=== PATIENT | male | born 1995 | race Caucasian/White ===

== ENCOUNTER 2017-10-20 05:08 | Emergency (ER) | payer OTHER ==
[~2017-10-20] VITALS: Ht 188 cm; Wt 90.7 kg
[2017-10-20] MEDS ORDERED: Augmentin 875-1 EACH PO (06:08)
[2017-10-20] MEDS ORDERED: Norco 5-325 Ta1 EACH PO (06:24)
== END 2017-10-20 06:38 | disposition home or self-care (01) ==
LOC: ER 05:08
DX: L03.011 Cellulitis of right finger (principal); F17.200 Nicotine dependence, unspecified, uncomplicated
CPT/HCPCS: 10060; 99283

== ENCOUNTER 2018-02-26 02:05 | Emergency (ER) | payer OTHER ==
[~2018-02-26] VITALS: Ht 188 cm; Wt 97.5 kg
[~2018-02-26 02:05] MED LIST: Augmentin 875-1 EACH PO; Norco 5-325 Ta1 EACH PO
[2018-02-26] MEDS ORDERED: Zofran Odt4 MG SL (02:42)
[2018-02-26] MEDS ORDERED: Norco 10-325 T1 EACH PO (02:42)
== END 2018-02-26 02:52 | disposition home or self-care (01) ==
LOC: ER 02:05
DX: S89.92XA Unspecified injury of left lower leg, initial encounter (principal); F17.200 Nicotine dependence, unspecified, uncomplicated; Z91.013 Allergy to seafood; X58.XXXA Exposure to other specified factors, initial encounter; Y92.89 Other specified places as the place of occurrence of the external cause; Y99.0 Civilian activity done for income or pay
CPT/HCPCS: 29505; 73562-LT; 99283

== ENCOUNTER 2018-06-14 20:19 | Emergency (ER) | payer OTHER ==
[~2018-06-14] VITALS: Ht 188 cm; Wt 101.6 kg
[~2018-06-14 20:19] MED LIST changes: +Norco 10-325 T1 EACH PO; +Zofran Odt4 MG SL
[2018-06-14 20:58] LABS: BASOPHILS ABSOLUTE AUTO 0.05 K/mm3 (0.00-0.23); BASOPHILS PERCENT AUTO 1 % (0-2); EOSINOPHILS ABSOLUTE AUTO 0.19 K/mm3 (0.00-0.68); EOSINOPHILS PERCENT AUTO 2 % (0-6); Hematocrit 46.5 % (37.0-53.0); Hemoglobin 16.1 g/dL (13.5-17.5); IMMATURE GRAN ABSOLUTE AUTO 0.03 K/mm3 (0.00-0.10); IMMATURE GRAN PERCENT AUTO 0 % (0-1); LYMPHOCYTES PERCENT AUTO 38 % (21-46); MONOCYTES ABSOLUTE AUTO 1.25 K/mm3 (0.16-1.47); MONOCYTES PERCENT AUTO 13 % (4-13); Mean Corpuscular HGB 31.5 pg (26.0-34.0); Mean Corpuscular HGB Conc 34.6 g/dL (31.5-36.5); Mean Corpuscular Volume 91 fL (80-100); Mean Platelet Volume 9.8 fL (9.1-12.4); NEUTROPHILS ABSOLUTE AUTO 4.65 K/mm3 (1.96-9.15); NEUTROPHILS PERCENT AUTO 47 % (41-73); Platelet Count 312 K/mm3 (150-400); RDW Coefficient Variation 12.5 % (11.7-14.2); RDW Standard Deviation 41.8 fL (35.1-46.3); Red Blood Cell Count 5.11 M/mm3 (4.30-5.90); White Blood Cell Count 9.87 K/mm3 (4.00-11.30)
[2018-06-14 21:26] LABS: Alanine Aminotransfer (ALT/SGP 67 U/L (12-78); Albumin/Globulin Ratio 1.1 (0.8-1.8); Alk Phos 112 U/L (50-136); Anion Gap 9 mmol/L (6-16); Aspartate Aminotrans (AST/SGOT 33 U/L (12-37); Bilirubin, Total 0.9 mg/dL (0.1-1.0); Blood Urea Nitrogen 12 mg/dL (8-24); CO2, Blood 26 mmol/L (21-32); Calcium, Blood 8.8 mg/dL (8.5-10.1); Chloride, Blood 103 mmol/L (98-108); Creatinine, Blood 0.92 mg/dL (0.60-1.20); Globulin, Blood 3.8 g/dL (2.2-4.0); Glomerular Filtration Rate >60 (60-); Glucose, Blood 91 mg/dL (70-99); Potassium, Blood 3.4 mmol/L (3.5-5.5); Sodium, Blood 138 mmol/L (136-145); Total Protein, Blood 7.8 g/dL (6.4-8.2)
== END 2018-06-14 21:28 | disposition left against medical advice (07) ==
LOC: ER 20:19
PROVIDERS: Emergency Medicine
DX: Z53.21 Procedure and treatment not carried out due to patient leaving prior to being seen by health care provider (principal)
CPT/HCPCS: 36415; 80053; 83690; 85025

== ENCOUNTER 2019-09-07 08:34 | Emergency (ER) | payer OTHER ==
[~2019-09-07] VITALS: Ht 188 cm; Wt 99.8 kg
[2019-09-07] MEDS ORDERED: Crutch1 EACH MISC (10:53)
[2019-09-07] MEDS ORDERED: Roxicodone5 MG PO (10:54)
== END 2019-09-07 11:33 | disposition home or self-care (01) ==
LOC: ER 08:34
DX: S89.91XA Unspecified injury of right lower leg, initial encounter (principal); F17.200 Nicotine dependence, unspecified, uncomplicated; Z88.0 Allergy status to penicillin; Z91.013 Allergy to seafood; X50.1XXA Overexertion from prolonged static or awkward postures, initial encounter
CPT/HCPCS: 29505; 73564; 96372-59; 99283-25; J1170; J1885

== ENCOUNTER 2019-09-30 19:34 | Emergency (ER) | payer OTHER ==
[~2019-09-30] VITALS: Ht 188 cm; Wt 99.8 kg
[~2019-09-30 19:34] MED LIST changes: +Crutch1 EACH MISC; +Roxicodone5 MG PO
[2019-09-30 20:19] LABS: Influenza A Negative (NEGATIVE); Influenza B Negative (NEGATIVE)
== END 2019-09-30 21:50 | disposition home or self-care (01) ==
LOC: ER 19:34
PROVIDERS: Physician Assistant
DX: J11.1 Influenza due to unidentified influenza virus with other respiratory manifestations (principal); F17.210 Nicotine dependence, cigarettes, uncomplicated; Z88.0 Allergy status to penicillin; Z91.013 Allergy to seafood
CPT/HCPCS: 87081; 87430; 87804; 99283

== ENCOUNTER → 2019-10-02 | Outpatient (CLI) | payer OTHER ==
[2019-10-02 12:55] LABS: BASOPHILS ABSOLUTE AUTO 0.03 K/mm3 (0.00-0.23); BASOPHILS PERCENT AUTO 1 % (0-2); EOSINOPHILS ABSOLUTE AUTO 0.02 K/mm3 (0.00-0.68); EOSINOPHILS PERCENT AUTO 0 % (0-6); Hematocrit 44.5 % (37.0-53.0); Hemoglobin 15.4 g/dL (13.5-17.5); Mean Corpuscular HGB 31.2 pg (26.0-34.0); Mean Corpuscular HGB Conc 34.6 g/dL (31.5-36.5); Mean Corpuscular Volume 90 fL (80-100); Mean Platelet Volume 9.7 fL (9.1-12.4); Platelet Count 257 K/mm3 (150-400); RDW Standard Deviation 39.6 fL (35.1-46.3); Red Blood Cell Count 4.93 M/mm3 (4.30-5.90); White Blood Cell Count 6.43 K/mm3 (4.00-11.30)
[2019-10-02 13:06] LABS: Alanine Aminotransfer (ALT/SGP 24 U/L (12-78); Albumin, Blood 3.6 g/dL (3.4-5.0); Albumin/Globulin Ratio 0.9 (0.8-1.8); Alk Phos 104 U/L (40-126); Anion Gap 12 mmol/L (6-16); Aspartate Aminotrans (AST/SGOT 24 U/L (12-37); Bilirubin, Total 0.5 mg/dL (0.1-1.0); Blood Urea Nitrogen 8 mg/dL (8-24); CO2, Blood 26 mmol/L (21-32); Calcium, Blood 8.3 mg/dL (8.5-10.1); Chloride, Blood 101 mmol/L (98-108); Creatinine, Blood 0.89 mg/dL (0.60-1.20); Glomerular Filtration Rate >60 (60-); Glucose, Blood 93 mg/dL (70-99); Potassium, Blood 3.9 mmol/L (3.5-5.5); Sodium, Blood 139 mmol/L (136-145); Total Protein, Blood 7.6 g/dL (6.4-8.2)
[2019-10-02 13:13] LABS: IMMATURE GRAN ABSOLUTE AUTO 0.02 K/mm3 (0.00-0.10); IMMATURE GRAN PERCENT AUTO 0 % (0-1); LYMPHOCYTES ABSOLUTE AUTO 1.86 K/mm3 (0.84-5.20); LYMPHOCYTES PERCENT AUTO 29 % (21-46); MONOCYTES ABSOLUTE AUTO 0.97 K/mm3 (0.16-1.47); MONOCYTES PERCENT AUTO 15 % (4-13); NEUTROPHILS ABSOLUTE AUTO 3.53 K/mm3 (1.96-9.15); NEUTROPHILS PERCENT AUTO 55 % (41-73)
== END | disposition home or self-care (01) ==
LOC: LAB SHORT 12:51 → LAB EV 12:51
PROVIDERS: General Practice
DX: J02.9 Acute pharyngitis, unspecified (principal)
CPT/HCPCS: 80053; 85025

== ENCOUNTER 2019-10-09 07:38 | Day surgery (SDC) | payer OTHER ==
[~2019-10-09] VITALS: Ht 188 cm; Wt 94.4 kg
--- NOTE | 2019-10-09 08:31 | NUR ---
10/09/19 0831 Nilda Enriquez BLOOD IS DRAWN FOR PRP AND ANTICOAG IS ADDED, DELIVERED TO OR AND SPUN.
--- NOTE | 2019-10-09 10:01 | NUR ---
10/09/19 1001 Aniya Llanes RIGHT FEMORAL NERVE BLOCK COMPLETED IN OR WITHOUT DIFFICULTY. PT TOLERATED PROCEDURE WELL.
== END 2019-10-09 13:43 | disposition home or self-care (01) ==
LOC: ORSCSDS 07:38
PROVIDERS: Orthopaedic Surgery
PROC: 0YQF0ZZ Repair Right Knee Region, Open Approach (ICD-10-PCS; principal; 2019-10-09 09:00)
PROC: 0QSD04Z Reposition Right Patella with Internal Fixation Device, Open Approach (ICD-10-PCS; principal; 2019-10-09 09:00)
PROC: 0SQC4ZZ Repair Right Knee Joint, Percutaneous Endoscopic Approach (ICD-10-PCS; principal; 2019-10-09 09:00)
DX: S83.004A Unspecified dislocation of right patella, initial encounter (principal); M94.261 Chondromalacia, right knee; S82.011A Displaced osteochondral fracture of right patella, initial encounter for closed fracture; F17.210 Nicotine dependence, cigarettes, uncomplicated
CPT/HCPCS: C1713; C1762; C1769; J0171; J0690; J1100; J1885; J2250; J2405; J2704; J2795; J3010; J7120

== ENCOUNTER 2021-11-13 00:03 | Emergency (ER) | payer OTHER ==
[~2021-11-13] VITALS: Ht 188 cm; Wt 99.3 kg
[2021-11-13] MEDS ORDERED: IBUP200 PO (01:14)
[2021-11-13] MEDS ORDERED: AMOX-CLAV 875-1 EAC5 PO (01:14)
== END 2021-11-13 02:11 | disposition home or self-care (01) ==
LOC: ER 00:03
DX: S01.512A Laceration without foreign body of oral cavity, initial encounter (principal); F17.210 Nicotine dependence, cigarettes, uncomplicated; Z88.0 Allergy status to penicillin; Z79.899 Other long term (current) drug therapy; X58.XXXA Exposure to other specified factors, initial encounter
CPT/HCPCS: 99282

== ENCOUNTER 2022-05-16 07:35 | Emergency (ER) | payer OTHER ==
[~2022-05-16] VITALS: Ht 188 cm; Wt 97.1 kg
[~2022-05-16 07:35] MED LIST changes: +AMOX-CLAV 875-1 EAC5 PO; +IBUP200 PO
== END 2022-05-16 11:01 | disposition home or self-care (01) ==
LOC: ER 07:35
DX: S61.213A Laceration without foreign body of left middle finger without damage to nail, initial encounter (principal); W45.8XXA Other foreign body or object entering through skin, initial encounter; F17.210 Nicotine dependence, cigarettes, uncomplicated
CPT/HCPCS: 12001; 99282-25

== ENCOUNTER 2023-02-26 23:54 | Emergency (ER) | payer OTHER ==
[~2023-02-26] VITALS: Ht 188 cm; Wt 104.3 kg
[2023-02-27 00:02] VITALS: BP 134/94
[2023-02-27] MEDS ORDERED: Prednisone20 MG PO (20:43)
== END 2023-02-27 04:20 | disposition home or self-care (01) ==
LOC: ER 23:54
DX: R20.0 Anesthesia of skin (principal); F17.210 Nicotine dependence, cigarettes, uncomplicated; Z88.0 Allergy status to penicillin
CPT/HCPCS: 99283

== ENCOUNTER 2023-02-27 18:26 | Emergency (ER) | payer OTHER ==
[~2023-02-27] VITALS: Ht 188 cm; Wt 104.3 kg
[2023-02-27 18:42] VITALS: BP 159/86
[2023-02-27] MEDS ORDERED: Prednisone20 MG PO (20:43)
== END 2023-02-27 20:55 | disposition home or self-care (01) ==
LOC: ER 18:26
DX: G51.0 Bell's palsy (principal); F17.210 Nicotine dependence, cigarettes, uncomplicated; Z88.0 Allergy status to penicillin
CPT/HCPCS: 70450; 99284-25

== ENCOUNTER 2024-10-11 05:52 | Inpatient (IN) | payer OTHER ==
[~2024-10-11] VITALS: Ht 188 cm; Wt 117.9 kg
[2024-10-11] VITALS (42 sets, daily range): BP systolic 41–140; BP diastolic 26–110
[~2024-10-11 05:52] MED LIST changes: +IBUP800 PO; +Prednisone20 MG PO
[2024-10-11] MEDS ORDERED: NS 1,000 ML IV ONE ×4 (05:58→20:55)
[2024-10-11] MEDS ORDERED: NS 1,000 ML IV SCH ×3 (06:15→17:00)
[2024-10-11] MEDS ORDERED: Piperacillin/Tazobactam Sod 3.375 GM in NS 100 ML IV ONE (07:00)
[2024-10-11] MEDS ORDERED: FentaNYL Citrate 50 MCG/ML 2 ML Injection IV ONE (07:05)
[2024-10-11] MEDS ORDERED: Vancomycin HCL 2,000 MG in NS 520 ML IV ONE (07:05)
[2024-10-11 07:08] LABS: BASOPHILS ABSOLUTE AUTO 0.02 K/mm3 (0.00-0.23); BASOPHILS PERCENT AUTO 1 % (0-2); Hematocrit 47.6 % (37.0-53.0); Hemoglobin 16.5 g/dL (13.5-17.5); Mean Corpuscular HGB 31.4 pg (26.0-34.0); Mean Corpuscular HGB Conc 34.7 g/dL (31.5-36.5); Mean Corpuscular Volume 91 fL (80-100); Mean Platelet Volume 10.2 fL (9.1-12.4); Platelet Count 250 K/mm3 (150-400); RDW Coefficient Variation 11.9 % (11.7-14.2); RDW Standard Deviation 40.1 fL (35.1-46.3); Red Blood Cell Count 5.25 M/mm3 (4.30-5.90); White Blood Cell Count 2.97 K/mm3 (4.00-11.30)
[2024-10-11 07:16] LABS: EOSINOPHILS PERCENT AUTO 0 % (0-6); IMMATURE GRAN ABSOLUTE AUTO 0.02 K/mm3 (0.00-0.10); IMMATURE GRAN PERCENT AUTO 1 % (0-1); LYMPHOCYTES ABSOLUTE AUTO 0.33 K/mm3 (0.84-5.20); LYMPHOCYTES PERCENT AUTO 11 % (21-46); MONOCYTES PERCENT AUTO 20 % (4-13); NEUTROPHILS PERCENT AUTO 67 % (41-73)
[2024-10-11 07:23] LABS: Albumin, Blood 3.5 g/dL (3.4-5.0); Albumin/Globulin Ratio 0.9 (0.8-1.8); Bilirubin, Total 1.3 mg/dL (0.1-1.0); Bun/Creatinine Ratio 8.2 (12.0-20.0); Calcium, Blood 8.5 mg/dL (8.5-10.1); Creatinine, Blood 1.58 mg/dL (0.60-1.20); Globulin, Blood 4.1 g/dL (2.2-4.0); Potassium, Blood 3.5 mmol/L (3.5-5.5); Total Protein, Blood 7.6 g/dL (6.4-8.2)
[2024-10-11 07:25] LABS: International Normalized Ratio 1.07; Prothrombin Time Results 11.4 Sec (9.7-11.5)
[2024-10-11 07:53] LABS: BAND PERCENT MAN 24 % (0-8); BASOPHILS PERCENT MAN 0 % (0-2); EOSINOPHILS PERCENT MAN 0 % (0-6); LYMPHOCYTES PERCENT MAN 7 % (21-46); MONOCYTES ABSOLUTE MAN 0.56 K/mm3 (0.16-1.47); MONOCYTES PERCENT MAN 19 % (4-13); NEUTROPHILS ABSOLUTE MAN 2.19 K/mm3 (1.96-9.15); SEG NEUTROPHILS PERCENT MAN 50 % (41-73); TOTAL CELLS COUNTED 42
[2024-10-11] MEDS ORDERED: HYDROmorphone HCl/Pf 1MG SYR IV ONE (08:10)
[2024-10-11 08:26] LABS: CORONAVIRUS COVID-19 AG Negative (NEGATIVE); INFLUENZA A AG Positive (NEGATIVE); INFLUENZA B AG Negative (NEGATIVE)
[2024-10-11] MEDS ORDERED: FLU VACC TS2024-25(6MOS UP)/PF 45 MCG/0.5 ML SYRINGE IM SCH (09:25)
[2024-10-11] MEDS ORDERED: HYDROcodone 5-APAP 325 TAB PO PRN (09:25)
[2024-10-11] MEDS ORDERED: Lactated Ringer's 1,000 ML IV SCH (09:25)
[2024-10-11] MEDS ORDERED: Ondansetron HCl 2 MG / ML 2ML Vial IV PRN (09:30)
[2024-10-11] MEDS ORDERED: Acetaminophen 500 MG Tab PO PRN (09:30)
[2024-10-11] MEDS ORDERED: LORazepam 0.5 MG Tab PO PRN (09:30)
[2024-10-11] MEDS ORDERED: Ketorolac Tromethamine 15mg Vial IV PRN (09:35)
[2024-10-11] MEDS ORDERED: Doxycycline Hyclate 100 MG in Dextrose 5% 250 ML IV SCH (10:00)
[2024-10-11] MEDS ORDERED: LORazepam 1 MG Tab PO PRN (11:20)
[2024-10-11] MEDS ORDERED: LORazepam 1 MG Tab PO ONE (11:20)
[2024-10-11] MEDS ORDERED: CefTRIAXone Sodium 2,000 MG in NS 100 ML IV SCH (12:00)
[2024-10-11] MEDS ORDERED: LORazepam 2 MG/ML 1ML Injection IV ONE ×2 (13:40→18:00)
[2024-10-11] MEDS ORDERED: NS 500 ML IV SCH (13:40)
[2024-10-11] MEDS ORDERED: dexmedeTOMIDine 100 ML IV SCH (14:30)
[2024-10-11] MEDS ORDERED: Midazolam HCL 1 MG/ML 5MLVIAL ONE (15:16)
[2024-10-11] MEDS ORDERED: propofoL 100 ML IV ONE (15:25)
[2024-10-11] MEDS ORDERED: propofoL 100 ML IV SCH (15:30)
[2024-10-11] MEDS ORDERED: Vasopressin 20 UNITS in NS 100 ML IV SCH (16:00)
[2024-10-11] MEDS ORDERED: Acetaminophen 500 MG Tab PT PRN (16:15)
[2024-10-11] MEDS ORDERED: FentaNYL Citrate 50 MCG/ML 2 ML Injection IV PRN (16:20)
[2024-10-11] MEDS ORDERED: Cetylpyridinium Chloride 1 EA MISC MT SCH (16:35)
[2024-10-11 16:44] LABS: U Amphetamine Screen Not Detected; U Barbituate Screen Not Detected; U Benzodiazapine Screen DETECTED; U Cannabinoids Screen Not Detected; U Cocaine Screen Not Detected; U Methadone Screen Not Detected; U Methamphetamine Screen Not Detected; U Opiates Screen DETECTED; U Phencyclidine Screen Not Detected
[2024-10-11 16:45] LABS: U Buprenorphine Screen Not Detected; U Oxycodone Screen Not Detected
[2024-10-11] MEDS ORDERED: Acetaminophen 160MG / 5ML 10.15 UDC PO PRN (16:45)
[2024-10-11] MEDS ORDERED: Albumin (Human) 25gm/100ml 100 ML IV ONE ×2 (16:45→22:00)
[2024-10-11] MEDS ORDERED: fentaNYL citrate 1,000 MCG in NS 80 ML IV SCH (16:45)
[2024-10-11] MEDS ORDERED: Pantoprazole Sodium 40 MG Injection IV SCH (17:00)
[2024-10-11] MEDS ORDERED: Phenylephrine HCl 100 MCG/ML-NS 10MLSYR (1MG/10ML) IV ONE (17:04)
[2024-10-11] MEDS ORDERED: Enoxaparin 40 MG/0.4 ML SYR SC SCH (18:00)
[2024-10-11] MEDS ORDERED: Folic Acid 1 MG in NS 50 ML IV SCH (18:00)
[2024-10-11] MEDS ORDERED: Thiamine HCl 100 MG in NS 50 ML IV SCH (18:00)
[2024-10-11] MEDS ORDERED: Midazolam HCL 50 MG in NS 40 ML IV PRN (18:00)
--- NOTE | 2024-10-11 19:20 | NUR ---
PATIENT RECIEVED FROM ED AT 1540. PATIENT NOTED TO BE AGITATED. DR ANDREW ORDERED TO GIVE 10ML OF PROPOFOL; BOLUS GIVEN, PT RELAXED AND BECAME HYPOTENSIVE. SEE CHART OF VITALS. 1L NS AND 1L LR GIVEN. PHENYLEPHRINE 200MCG GIVEN X3 AT 1551, 1554, AND 1557. PATIENT SETTLED INTO BED AND PLACED IN RESTRAINTS. PT VITALS CONTINUED TO BE HYPOTENSIVE; DR. ANDREW AT BEDSIDE TO PLACE L SUBCLAVIAN CENTRAL LINE. LINE PLACED WITHOUT ISSUE; PLACEMENT VERIFIED BY XRAY. (JUAN DAVID) AT BEDSIDE TO UPDATE TEAM THAT PATIENT DRINKS 12 PACK OF BEERS A DAY WITH HIS LAST DRINK ON 10/08/2024. VERSED AND FENTANYL ORDERED. TEMP PROBE COTO PLACED, TEMP AT 104.7. ESOPHAGEAL TEMP PROBE PLACED AND CONFIRMED; TYLENOL GIVEN, ICE PACKS AND COOLING BLANKET APPLIED. HR HAS BEEN ELEVATED THROUGHOUT THE DAY, LEVELING OUT IN THE 150'S AFTER INTERVENTIONS. BROTHER JUAN DAVID AT BEDSIDE AND ALL QUESTIONS ASNWERED AT THE MOMENT. REPORT GIVEN TO RN INVASIVE.
[2024-10-11] MEDS ORDERED: Ibuprofen 400 MG Tab PT ONE (20:00)
[2024-10-11] MEDS ORDERED: GuaiFENesin 600 MG TabCR PO SCH (21:00)
[2024-10-11] MEDS ORDERED: Lactobacil 2-S.Thermo-Bifido 1 1 Cap PO SCH (21:00)
[2024-10-11] MEDS ORDERED: Oseltamivir Phosphate 75 MG Cap PT SCH (21:00)
[2024-10-11] MEDS ORDERED: NS 500 ML IV ONE (21:35)
[2024-10-11] MEDS ORDERED: Hydrocortisone Sod Succinate 100 MG Vial IV ONE (22:40)
[2024-10-11 23:57] LABS: PCO2 Arterial 28.3 mmHg (35-45); PO2 Arterial 89.2 mmHg (80-100); pH Blood Arterial 7.15 (7.35-7.45)
[2024-10-12] VITALS (29 sets, daily range): BP systolic 85–132; BP diastolic 59–87
[2024-10-12] MEDS ORDERED: Hydrogen Peroxide 1.5 % Solution MT SCH
[2024-10-12] MEDS ORDERED: Sodium Bicarb 8.4% 1 MEQ/ML 50 ML Vial IV ONE ×3 (00:05→15:20)
[2024-10-12 01:43] LABS: PCO2 Arterial 32.8 mmHg (35-45); PO2 Arterial 75.4 mmHg (80-100); pH Blood Arterial 7.12 (7.35-7.45)
[2024-10-12] MEDS ORDERED: Sodium Bicarb 8.4% Inj 150 MEQ in Dextrose 5% 1,000 ML IV SCH ×3 (01:50→22:15)
--- NOTE | 2024-10-12 01:56 | NUR ---
FIRE SAFETY/IGNITION SOURCES EDUCATION PT INTUBATED AND SEDATED, NO FAMILY AT THE BEDSIDE. UNABLE TO PROVIDE EDUCATION DUE TO THIS. NO IGNITION SOURCES PRESENT. CARE CONTINUES.
--- NOTE | 2024-10-12 02:17 | NUR ---
ASSUMPTION OF CARE/BLOCK CHARTING ASSUMED CARE OF PATIENT AT 1900, BEDSIDE SHIFT REPORT REVIEVED FORM MARIE AGUDELO. PT RESTING IN BED, INTUBATED AND SEDATED. AT START OF SHIFT, PROPOFOL INFUSING AT 60MCG/KG/MIN, VERSED INFUSING AT 4MG/HR, FENTANYL INFUSING AT 25MCG/HR. PT UNRESPONSIVE TO NOXIOUS STIMULI. PUPILS EQUAL AND REACTIVE TO LIGHT. TATS IN PLACE TO BUE. PT WITH TMAX OF 103.5 THIS SHIFT. COOLING BLANKET AND ICE PACKS IN PLACE. HR 140-150'S PT HYPOTENSIVE, LEVOPHED INFUSING AT 12MCG/MIN, VASOPRESSIN INFUSING AT 0.04UNITS/MIN. PT INTUBATED, VENT SETTINGS 16/550/10/100%, OXYGEN SATURATION >90%. ABDOMEN SOFT, BOWEL TONES HYPOACTIVE. OG TUBE IN PLACE CLAMPED. TEMP COTO IN PLACE DRAINING YELLOW URINE TO GRAVITY. PIV IN PLACE TO RAC, LAC AND RIGHT HAND. CENTRAL LINE IN PLACE TO LIJ. PT REMAINS FEBRILE DESPITE COOLING BLANKET, ICE PACKS AND TYLENOL, CALL PLACED TO , ORDERS RECEIVED FOR ADVIL, SEE EMAR. TEMPERATURE IMPROVED, NOW READING 97.0. PT BECAME INCREASINGLY HYPOTENSIVE, LEVOPHED TITRATED UP, SEE FLOWSHEET FOR TITRATIONS. LEVOPHEN CURRENTLY INFUISNG AT 50MCG/MIN. DR. ANDREW CALLED AND INFORMED. DR ANDREW TO BEDSIDE FOR ARTLINE PLACEMENT. EPINEPHRINE ADDED FOR CONTINUING HYPOTENSION, SEE FLOWSHEET FOR TITRATIONS, CURRENTLY RUNNING AT 8MCG/MIN. PROPOFOL TITRATED DOWN CURRENTLY INFUSING AT 35 MCG/KG/MIN, FENTANYL TITRATED OFF. ART LINE PLACED TO RIGHT GROIN, ABG ORDERED. UNABLE TO GET A GOOD SPO2 READING, HOWEVER ABG RESULTS SHOW PROPER OXYGENATION. DR. ANDREW CALLED WITH pH RESULTS, ORDERS RECEIVED, SEE EMAR. PT SKIN COOL, MOTTLING NOTED TO EXTREMITIES. PT FAMILY AT THE BEDSIDE. MOTHER JULIÁN IS DECISION MAKER. BED IN LOWEST POSITION, CALL LIGHT WITHIN REACH, CARE CONTINUES.
[2024-10-12 03:30] LABS: PCO2 Arterial 32.1 mmHg (35-45); PO2 Arterial 67.8 mmHg (80-100)
[2024-10-12 03:31] LABS: pH Blood Arterial 7.13 (7.35-7.45)
[2024-10-12 03:44] LABS: Hematocrit 37.2 % (37.0-53.0); Hemoglobin 12.7 g/dL (13.5-17.5); Mean Corpuscular HGB 31.4 pg (26.0-34.0); Mean Corpuscular HGB Conc 34.1 g/dL (31.5-36.5); Mean Corpuscular Volume 92 fL (80-100); Mean Platelet Volume 10.5 fL (9.1-12.4); Platelet Count 117 K/mm3 (150-400); RDW Coefficient Variation 12.1 % (11.7-14.2); RDW Standard Deviation 41.5 fL (35.1-46.3); Red Blood Cell Count 4.04 M/mm3 (4.30-5.90); White Blood Cell Count 1.68 K/mm3 (4.00-11.30)
[2024-10-12 04:00] LABS: International Normalized Ratio 1.59; Prothrombin Time Results 16.4 Sec (9.7-11.5)
[2024-10-12 04:04] LABS: Magnesium, Blood 2.2 mg/dL (1.6-2.4)
[2024-10-12 04:25] LABS: Albumin, Blood 2.5 g/dL (3.4-5.0); Anion Gap 21 mmol/L (3-11); Blood Urea Nitrogen 23 mg/dL (8-24); Bun/Creatinine Ratio 10.9 (12.0-20.0); CO2, Blood 11 mmol/L (21-32); Chloride, Blood 105 mmol/L (98-108); Creatinine, Blood 2.11 mg/dL (0.60-1.20); Glomerular Filtration Rate 42 (60-); Glucose, Blood 236 mg/dL (70-99); Potassium, Blood 4.4 mmol/L (3.5-5.5); Sodium, Blood 133 mmol/L (136-145)
[2024-10-12 04:27] LABS: Calcium, Blood 6.3 mg/dL (8.5-10.1)
[2024-10-12] MEDS ORDERED: Vancomycin HCL 2,000 MG in NS 500 ML IV ONE (05:10)
[2024-10-12 05:33] LABS: PCO2 Arterial 32.5 mmHg (35-45)
[2024-10-12 05:34] LABS: PO2 Arterial 66.1 mmHg (80-100)
--- NOTE | 2024-10-12 05:52 | NUR ---
SHIFT SUMMARY PT CONTINUES TO REST IN BED, INTUBATED AND SEDATED. PROPOFOL INFUSING AT 35MCG/KG/MIN, VERSED INFUSING AT 4MG/HR. PT WITH RASS -4, NOT RESPONSIVE TO NOXIOUS STIMULI. PUPILS EQUAL ROUND AND REACTIVE TO LIGHT. PT WITH TEMPERATURE OF 99.3. PT EXTREMITIES MOTTLED, SKIN COOL. HR 110-120'S SINUS, ARTERIAL LINE IN PLACE TO RIGHT GROIN, MAP >65. EPINEPHRINE TITRATED OFF THIS SHIFT, LEVOPHED INFUSING AT 44MCG/MIN, VASOPRESSIN INFUSING AT 0.04UNITS/MIN. PT INTUBATED, VENT SETTINGS 16/550/10/75%, UNABLE TO GET ACCURATE PERIPHERAL OXYGEN SATURATION DUE TO PRESSORS INFUSING, SERIAL ABGS ORDERED. OG TUBE IN PLACE CLAMPED, BOWEL TONES HYPOACTIVE. TEMP COTO IN PLACE PATENT DRIANING YELLOW URINE TO GRAVITY. PIV IN PLACE TO RAC, LAC, AND RIGHT HAND. CENTRAL LINE IN PLACE TO LEFT SUBCLAVIAN. 150MEQ SODIUM BICARB INFUSING AT 150MLS/HR. BED IN LOWEST POSITON, PT MOTHER AT THE BEDSIDE, CALL LIGHT WITHIN REACH, CARE CONTINUES.
[2024-10-12] MEDS ORDERED: Calcium Chloride 10% 1,000 MG in NS 50 ML IV ONE (06:00)
[2024-10-12] MEDS ORDERED: Hydrocortisone Sod Succinate 100 MG Vial IV SCH (07:30)
[2024-10-12 08:05] LABS: PO2 Arterial 64.6 mmHg (80-100)
[2024-10-12 08:06] LABS: pH Blood Arterial 7.18 (7.35-7.45)
[2024-10-12] MEDS ORDERED: Albumin (Human) 25gm/100ml 100 ML IV ONE (08:35)
[2024-10-12 10:58] LABS: PCO2 Arterial 44.4 mmHg (35-45); PO2 Arterial 72.7 mmHg (80-100); pH Blood Arterial 7.23 (7.35-7.45)
[2024-10-12 16:27] LABS: PCO2 Arterial 47.3 mmHg (35-45); PO2 Arterial 58.1 mmHg (80-100)
[2024-10-12 16:28] LABS: pH Blood Arterial 7.27 (7.35-7.45)
[2024-10-12 16:54] LABS: Creatinine, Blood 1.92 mg/dL (0.60-1.20); Vancomycin, Random 21.7 ug/mL
[2024-10-12 18:02] LABS: PCO2 Arterial 47.2 mmHg (35-45); PO2 Arterial 63.1 mmHg (80-100)
[2024-10-12 18:04] LABS: pH Blood Arterial 7.26 (7.35-7.45)
--- NOTE | 2024-10-12 18:38 | NUR ---
PATIENT RECIEVED AT 0700. IN THE AM, ABG 7.18; DR. ANDREW UPDATED AND 2 AMPS OF BICARB ORDERED NOW AND 1 25G ALBUMIN. SPUTUM CAME BACK POSITIVE FOR MRSA STAPH INFECTION; ABX CHANGED. TEMP CLIMBED TO 102.5 WITH NO RESULTS FOLLOWING TYLENOL ADMIN. COOLING BLANKET REAPPLIED. FOLLOWING AMPS OF BICARB, PRESSOR REQUIREMENT MUCH LESS, AT ONE POINT THE LOWEST WAS LEVO AT 16 AND VASOPRESSIN OFF. MID AFTERNOON, MAP DROPPED BELOW 65 AND LEVO INCREASED AND VASO TURNED BACK ON. END OF SHIFT; VASO ON AT 0.04, LEVO AT 20, PROP AT 35. ABG DRAWS Q6H OVERNIGHT TONIGHT. FEVER NOW BREAKING TEMP 99.4. BICARB GTT CONTINUES AT 150/HR. JULIÁN (MOM) AT BEDSIDE AND ALL QUESTIONS ANSWERED.
[2024-10-12] MEDS ORDERED: Ipratropium/Albuterol SulF 2.5-0.5MG/3 ML Amp INH PRN (19:35)
[2024-10-12] MEDS ORDERED: Potassium Chloride 20 MEQ/15 ML UDC PT ONE (19:45)
[2024-10-12] MEDS ORDERED: Furosemide 10 MG/ML 4ML Vial IV ONE (20:00)
--- NOTE | 2024-10-12 21:40 | NUR ---
ASSUMPTION OF CARE ASSUMED CARE OF PATIENT AT 1900, BEDSDIE SHIFT REPORT RECEIVED FROM MARIE RN. PT RESTING IN BED, INTUBATED AND SEDATED. PROPOFOL INFUSING AT 30MCG/KG/MIN, VERSED INFUSING AT 4MG/HR. RASS -5, PT NOT RESPONSIVE TO NOXIOUS STIMULI. PUPILS EQUAL ROUND AND REACTIVE TO LIGHT, SLUGGISH. HR 100-120'S SINUS, ART LINE IN PLACE TO RIGHT GROIN. LEVOPHED INFUSING AT 18MCG/MIN, VASOPRESSIN INFUSING AT 0.04UNITS/MIN, MAP >65. PT EXTREMITIES MOTTLED AND COOL. VENT SETTINGS AC/VC 16/550/10/75%, OXYGEN SATURATION >90%. ABDOMEN SOFT, BOWEL TONES HYPOACTIVE, OG TUBE IN PLACE CLAMPED. TEMP COTO IN PLACE PATENT DRAINING YELLOW URINE TO GRAVITY. PIV IN PLACE TO RAC, LAC AND RIGHT HAND. CENTRAL LINE IN PLACE TO LEFT SUBCLAVIAN. SODIUM BICARB INFUSING AT 75MLS/HR. BED IN LOWEST POSITION, CALL LIGHT WITHIN REACH, CARE CONTINUES.
[2024-10-13] VITALS (14 sets, daily range): BP systolic 90–155; BP diastolic 50–80
[2024-10-13 02:23] LABS: pH Blood Arterial 7.18 (7.35-7.45)
[2024-10-13 02:35] LABS: PO2 Arterial 62.5 mmHg (80-100)
[2024-10-13 02:38] LABS: pH Blood Arterial 7.26 (7.35-7.45)
[2024-10-13] MEDS ORDERED: Sodium Bicarb 8.4% 1 MEQ/ML 50 ML Vial IV ONE (02:40)
[2024-10-13] MEDS ORDERED: Calcium Chloride 10% 1,000 MG in NS 50 ML IV SCH (02:45)
[2024-10-13] MEDS ORDERED: CALCIUM GLUC IN NACL, ISO-OSM 50 ML IV SCH (02:47)
[2024-10-13 04:13] LABS: Hematocrit 38.1 % (37.0-53.0); Mean Corpuscular HGB 32.7 pg (26.0-34.0); Mean Corpuscular HGB Conc 36.7 g/dL (31.5-36.5); Mean Corpuscular Volume 89 fL (80-100); Mean Platelet Volume 10.4 fL (9.1-12.4); RDW Coefficient Variation 12.3 % (11.7-14.2); RDW Standard Deviation 40.5 fL (35.1-46.3); Red Blood Cell Count 4.28 M/mm3 (4.30-5.90)
[2024-10-13 04:16] LABS: BASOPHILS ABSOLUTE AUTO 0.03 K/mm3 (0.00-0.23); BASOPHILS PERCENT AUTO 4 % (0-2); EOSINOPHILS ABSOLUTE AUTO 0.02 K/mm3 (0.00-0.68); EOSINOPHILS PERCENT AUTO 3 % (0-6); IMMATURE GRAN PERCENT AUTO 0 % (0-1); LYMPHOCYTES ABSOLUTE AUTO 0.13 K/mm3 (0.84-5.20); LYMPHOCYTES PERCENT AUTO 19 % (21-46); MONOCYTES ABSOLUTE AUTO 0.04 K/mm3 (0.16-1.47); MONOCYTES PERCENT AUTO 6 % (4-13); NEUTROPHILS ABSOLUTE AUTO 0.48 K/mm3 (1.96-9.15); NEUTROPHILS PERCENT AUTO 69 % (41-73)
[2024-10-13 04:23] LABS: Platelet Count 47 K/mm3 (150-400)
[2024-10-13 04:44] LABS: Albumin, Blood 2.1 g/dL (3.4-5.0); Anion Gap 18 mmol/L (3-11); Blood Urea Nitrogen 33 mg/dL (8-24); Bun/Creatinine Ratio 13.6 (12.0-20.0); CO2, Blood 24 mmol/L (21-32); Calcium, Blood 5.9 mg/dL (8.5-10.1); Chloride, Blood 96 mmol/L (98-108); Creatinine, Blood 2.43 mg/dL (0.60-1.20); Glomerular Filtration Rate 36 (60-); Glucose, Blood 122 mg/dL (70-99); Phosphorus, Blood 7.2 mg/dL (2.5-4.9); Potassium, Blood 3.9 mmol/L (3.5-5.5); Sodium, Blood 134 mmol/L (136-145); Vancomycin, Random 16.5 ug/mL
[2024-10-13 05:44] LABS: PCO2 Arterial 51.9 mmHg (35-45)
[2024-10-13] MEDS ORDERED: CALCIUM CHLORIDE IV SCH (05:55)
--- NOTE | 2024-10-13 06:12 | NUR ---
SHIFT SUMMARY PT CONTINUES TO REST IN BED, INTUBATED AND SEDATED. PROPOFOL INFUSING AT 30MCG/KG/MIN, VERSED INFUSING AT 4MG/HR. RASS -5, PT DOES NOT RESPOND TO NOXIOUS STIMULI. HR 110-130'S SINUS, LEVOPHED INFUSING AT 10MCG/MIN, VASOPRESSIN INFUSING AT 0.04UNITS/MIN, SEE FLOWSHEET FOR TITRATIONS. VENT SETTINGS AC/VC 16/550/10/85%, OXYGEN SATURATION >90%. ABDOMEN SOFT, BOWEL TONES ACTIVE THROUGHOUT. OG TUBE IN PLACE CLAMPED. TEMP COTO IN PLACE PATENT DRAINING YELLOW URINE TO GRAVITY. PIV IN PLACE TO RAC, LAC, AND RIGHT HAND. CENTRAL LINE IN PLACE TO LEFT SUBCLAVIAN. SODIUM BICARB INFUSING AT 75MS/HR. BED IN LOWEST POSITION, CALL LIGHT WITHIN REACH, CARE CONTINUES.
[2024-10-13] MEDS ORDERED: Calcium Chloride 10% 2,000 MG in NS 100 ML IV SCH (06:30)
[2024-10-13] MEDS ORDERED: Vancomycin HCL 1,750 MG in NS 500 ML IV SCH (08:00)
[2024-10-13] MEDS ORDERED: Lactated Ringer's 1,000 ML IV ONE (10:00)
[2024-10-13] MEDS ORDERED: Glucose Oral Gel 15 GM TUBE PT ONE (12:20)
[2024-10-13 12:22] LABS: PCO2 Arterial 54.3 mmHg (35-45); PO2 Arterial 66.2 mmHg (80-100); pH Blood Arterial 7.29 (7.35-7.45)
[2024-10-13] MEDS ORDERED: FILGRASTIM-AYOW 480 MCG/0.8 ML 0.8MLSYR SC SCH (14:00)
[2024-10-13 16:25] LABS: Hematocrit 37.9 % (37.0-53.0); Hemoglobin 13.6 g/dL (13.5-17.5); Mean Corpuscular HGB 32.3 pg (26.0-34.0); Mean Corpuscular HGB Conc 35.9 g/dL (31.5-36.5); Mean Corpuscular Volume 90 fL (80-100); Mean Platelet Volume 11.5 fL (9.1-12.4); RDW Coefficient Variation 12.4 % (11.7-14.2); Red Blood Cell Count 4.21 M/mm3 (4.30-5.90); White Blood Cell Count 1.14 K/mm3 (4.00-11.30)
[2024-10-13 16:33] LABS: Platelet Count 35 K/mm3 (150-400)
[2024-10-13 16:36] LABS: Magnesium, Blood 1.9 mg/dL (1.6-2.4)
[2024-10-13 16:37] LABS: Bun/Creatinine Ratio 13.7 (12.0-20.0); Phosphorus, Blood 7.5 mg/dL (2.5-4.9)
[2024-10-13 16:51] LABS: BAND PERCENT MAN 36 % (0-8); BASOPHILS PERCENT MAN 0 % (0-2); EOSINOPHILS ABSOLUTE MAN 0.06 K/mm3 (0.00-0.68); EOSINOPHILS PERCENT MAN 6 % (0-6); LYMPHOCYTES ABSOLUTE MAN 0.02 K/mm3 (0.84-5.20); LYMPHOCYTES PERCENT MAN 2 % (21-46); METAMYELOCYTE ABSOLUTE MAN 0.13 K/mm3 (0.00-0.00); METAMYELOCYTE PERCENT MAN 12 % (0-0); MONOCYTES ABSOLUTE MAN 0.06 K/mm3 (0.16-1.47); MONOCYTES PERCENT MAN 6 % (4-13); MYELOCYTE ABSOLUTE MAN 0.02 K/mm3 (0.00-0.00); MYELOCYTE PERCENT MAN 2 % (0-0); NEUTROPHILS ABSOLUTE MAN 0.82 K/mm3 (1.96-9.15); SEG NEUTROPHILS PERCENT MAN 36 % (41-73); TOTAL CELLS COUNTED 50
[2024-10-13] MEDS ORDERED: LORazepam 2 MG/ML 1ML Injection IV PRN (16:55)
[2024-10-13] MEDS ORDERED: Cisatracurium Besylate 100 MG in NS 50 ML IV PRN (17:05)
[2024-10-13] MEDS ORDERED: NS 250 ML IV PRN (17:35)
--- NOTE | 2024-10-13 18:42 | NUR ---
Pt continues sedated and intubated. Versed DC'd today, fentanyl GTT started this evening. Nimbex started for anticipated proning. Pt sats declined this afternoon, adjustments made to vent settings, PRN fentanyl given, repositioned, all without bringing sats above 87%. Levophed titrated off early this afternoon but restarted for BP control. Vasopressin DC'd this afternoon. Pt family at bedside this afternoon/evening, updated on patient condition. See chart for further details.
[2024-10-13] MEDS ORDERED: Vasopressin 20 UNITS in NS 100 ML IV SCH (20:00)
[2024-10-13] MEDS ORDERED: Lactobacil 2-S.Thermo-Bifido 1 1 Cap PO SCH (21:00)
[2024-10-13 22:56] LABS: PO2 Arterial 76.8 mmHg (80-100)
[2024-10-13 23:02] LABS: pH Blood Arterial 7.21 (7.35-7.45)
--- NOTE | 2024-10-13 23:12 | NUR ---
ASSMUPTION OF CARE/BLOCK CHARTING ASSUMED CARE OF PATIENT AT 1900, REPORT RECEIVED FORM MARIE RN. PT INTUBATED, PARALYZED AND SEDATED. BIS MONITOR IN PLACE SCORE OR 20-40'S, TOF 0. NIMBEX INFUSING AT 3MCG/KG/MIN, PROPOFOL INFUSING AT 40MCG/KG/MIN, FENTANYL INFUSING AT 25MCG/HR. PT PRONED AT START OF SHIFT WITH THIS RN, DAYSHIFT RUGBY LEAGUE FOOTBALLER, RT AND ADDITIONAL RN. DURING PRONING PROCESS PT BECAME HYPOTENSIVE, ARTERIAL LINE IN PLACE TO RIGHT GROIN, RAPIDLY TITRATED UP LEVOPHED TO A MAX OF 24MCG/MIN, VASOPRESSIN ALSO ADDED AT 0.04 UNITS/MIN. PT TACHYCARDIC, HR 130-140'S SINUS. ONCE PT TURNED TO RIGHT SIDE, SBP 140'S-150'S, LEVOPHED TITRATED DOWN, CURRENTLY INFUSING AT 5MCG/MIN, VASOPRESSIN CURRENTLY INFUSING AT 0.04UNITS/MIN. VENT SETTINGS AC/PC RR 24, INSPIRATORY PRESSURE 16, PEEP 15, FIO2 100%, TIDAL VOLUMES 330'S. OG TUBE IN PLACE TUBE FEED PLACED ON HOLD FOR PRONING, INSTRUCTED TO RESTART VHP AT 25MLS/HR AND REMAIN AT THIS RATE THROUGHOUT THE NIGHT PER . TEMP COTO IN PLACE DRAINING YELLOW URINE TO GRAVITY. PT FEBRILE, TEMPERATURE CURRENTLY 102.8, COOLING BLANKET IN PLACE. DISCUSSED MEDICATING PT WITH TYLENOL FOR FEVER WITH DR. AVINA, PREVIOUS DOSES DIDN'T APPEAR TO BE EFFECTIVE PIV IN PLACE TO RAC, LAC AND RIGHT HAND. CENTRAL LINE IN PLACE TO LEFT SUBCLAVIAN. SODIUM BICARB INFUSING AT 75MLS/HR. PT BLE MOTTLED/PURPLE, PLANTAR SURFACE WELL HEELS MINOR/WHITE, PICTURES IN CHART. PT BILATERAL HAND ALSO MOTTLED/PURPLE. PT FAMILY AT THE BEDSIDE POST PRONING, UPDATED ON PATIENT CONDITION BY THIS RN AND DR. AVINA. DR. AVINA CALLED WITH RESULTS OF ABG BY RT, NO CHANGES AT THIS TIME. CARE CONTINUES.
[2024-10-14] VITALS (8 sets, daily range): BP systolic 100–124; BP diastolic 46–61
[2024-10-14 05:03] LABS: PO2 Arterial 64.1 mmHg (80-100)
[2024-10-14 05:04] LABS: PCO2 Arterial 77.7 mmHg (35-45); pH Blood Arterial 7.15 (7.35-7.45)
[2024-10-14 05:12] LABS: Hematocrit 37.2 % (37.0-53.0); Mean Corpuscular HGB 32.2 pg (26.0-34.0); Mean Corpuscular HGB Conc 34.9 g/dL (31.5-36.5); Mean Corpuscular Volume 92 fL (80-100); Mean Platelet Volume 11.8 fL (9.1-12.4); NRBC ABSOLUTE 0.04 K/mm3 (0.00-0.02); NRBC Auto 1.1 /100 WBC (0.0-0.2); RDW Coefficient Variation 12.7 % (11.7-14.2); RDW Standard Deviation 42.8 fL (35.1-46.3); Red Blood Cell Count 4.04 M/mm3 (4.30-5.90); White Blood Cell Count 3.61 K/mm3 (4.00-11.30)
[2024-10-14 05:20] LABS: Platelet Count 35 K/mm3 (150-400)
[2024-10-14 05:30] LABS: BAND PERCENT MAN 51 % (0-8); BASOPHILS PERCENT MAN 0 % (0-2); EOSINOPHILS ABSOLUTE MAN 0.07 K/mm3 (0.00-0.68); EOSINOPHILS PERCENT MAN 2 % (0-6); LYMPHOCYTES ABSOLUTE MAN 0.14 K/mm3 (0.84-5.20); LYMPHOCYTES PERCENT MAN 4 % (21-46); METAMYELOCYTE ABSOLUTE MAN 0.14 K/mm3 (0.00-0.00); METAMYELOCYTE PERCENT MAN 4 % (0-0); MONOCYTES ABSOLUTE MAN 0.18 K/mm3 (0.16-1.47); MONOCYTES PERCENT MAN 5 % (4-13); MYELOCYTE ABSOLUTE MAN 0.07 K/mm3 (0.00-0.00); MYELOCYTE PERCENT MAN 2 % (0-0); NEUTROPHILS ABSOLUTE MAN 2.99 K/mm3 (1.96-9.15); SEG NEUTROPHILS PERCENT MAN 32 % (41-73); TOTAL CELLS COUNTED 100
[2024-10-14 05:38] LABS: Magnesium, Blood 2.5 mg/dL (1.6-2.4)
--- NOTE | 2024-10-14 05:50 | NUR ---
SHIFT SUMMARY PT CONTINUES TO BE INTUBATED, SEDATED AND PARALYZED. NIMBEX INFUSING AT 2MCG/KG/MIN, TOF 0. PROPOFOL INFUSING AT 35MCG/KG/MIN, FENTANYL INFUSING AT 25MCG/HR, BIS MONITOR IN PLACE READING 15-39 THIS SHIFT. PT WITH TMAX OF 103.2 THIS SHIFT, COOLING BLANKET AND ICE PACKS IN PLACE. HR 130-140'S SINUS, LEVOPHED INFUSING AT 15MCG/MIN, VASOPRESSIN INFUSING AT 0.04UNITS/MIN TO MAINTAIN MAP >65. ART LINE IN PLACE TO RIGHT GROIN. VENT SETTINGS AC/PC RR 24, INSPIRATORY PRESSURE 16, PEEP 15, FIO2 100%, TIDAL VOLUMES IN THE 300'S. OXYGEN SATURATION 82-91% THIS SHIFT. OG TUBE IN PLACE WITH VHP INFUSING AT 25MLS/HR PER WITH 30ML Q4H WATER FLUSH. TEMP COTO IN PLACE DRAINING TO GRAVITY. PIV IN PLACE TO RAC, LAC AND RIGHT HAND. CENTRAL LINE IN PLACE TO LEFT SUBCLAVIAN. SODIUM BICARB INFUSING AT 75MLS/HR. BED IN LOWEST POSITION, CARE CONTINUES.
[2024-10-14 06:07] LABS: Albumin, Blood 1.8 g/dL (3.4-5.0); Anion Gap 17 mmol/L (3-11); Blood Urea Nitrogen 52 mg/dL (8-24); CO2, Blood 27 mmol/L (21-32); Calcium, Blood 6.4 mg/dL (8.5-10.1); Chloride, Blood 93 mmol/L (98-108); Creatinine, Blood 4.01 mg/dL (0.60-1.20); Glomerular Filtration Rate 20 (60-); Glucose, Blood 91 mg/dL (70-99); Phosphorus, Blood 10.1 mg/dL (2.5-4.9); Potassium, Blood 4.5 mmol/L (3.5-5.5); Sodium, Blood 132 mmol/L (136-145)
--- NOTE | 2024-10-14 06:14 | NUR ---
PT UPDATE CALLED AND SPOKE WITH DR. KELLY REGARDING PT LABS, VENT SETTINGS AND VITALS THROUGHOUT THE EVENING. ORDERS RECEIVED TO GIVE MORNING DOSE OF CALCIUM CHLORIDE EARLY, PHARMACY CALLED. CARE CONTINUES.
[2024-10-14] MEDS ORDERED: Sevelamer Carbonate 800 MG Tab PO SCH (08:00)
--- NOTE | 2024-10-14 08:56 | NUR ---
On 6 am, spent approximately 1.5 hrs with pt's mom Rocio in the ICU waiting room along with [facility]. She reported feeling anxious, and gave a detailed history of family dynamics, including the patient and his 2 siblings have been estranged for several years. She also talked extensively about her ex-, the pt's father, involving years of estrangement. She states feeling torn about contacting the patient's father, stating he had given up parental rights of the patient and his siblings. She also talked about her relationship with God, and how meaningful it is to her. She stated she understood that her son may not live through this illness. Provided emotional support and engaged in active listening with pt's mom, and she stated appreciation. Offered helicopter mechanic support which she declined, stating she has a close relationship with her edger automatic who has been checking in with her frequently. Plan to see pt's mom again this morning (10/14), as the patient's condition is worsening. Attempts being made to life-flight pt to [facility] for ECMO. Clinical Transformation Specialist and ICU infrastructure security architect are attempting to initiate the transfer.
[2024-10-14 12:00] LABS: PCO2 Arterial 49.9 mmHg (35-45); PO2 Arterial 87.4 mmHg (80-100); pH Blood Arterial 7.29 (7.35-7.45)
--- NOTE | 2024-10-14 14:08 | NUR ---
Pt transfered at approximately 1315 to [facility] in [place] via [employer] team. Report given to team taking pt maurice and RN assuming care at [facility]. Updates and contact information for new room and hospital given to patient's family members, mom and daughter. All personal belongings with family members prior to patient departure. Pt remained in critical condition up to and upon departure from ICU, see chart for vital signs and further details.
== END 2024-10-14 14:41 | disposition short-term general hospital (02) | DRG 871 ==
LOC: ER 05:52 → ERHOLD 09:21 → ICUE 09:21
PROVIDERS: Internal Medicine Critical Care Medicine; Student in an Organized Health Care Education/Training Program; ADMIT Internal Medicine
PROC: 3E03329 Introduction of Other Anti-infective into Peripheral Vein, Percutaneous Approach (ICD-10-PCS; principal; 2024-10-11)
PROC: 3E033XZ Introduction of Vasopressor into Peripheral Vein, Percutaneous Approach (ICD-10-PCS; 2024-10-11)
PROC: 0DH67UZ Insertion of Feeding Device into Stomach, Via Natural or Artificial Opening (ICD-10-PCS; 2024-10-11)
PROC: 0T9B70Z Drainage of Bladder with Drainage Device, Via Natural or Artificial Opening (ICD-10-PCS; 2024-10-11)
PROC: 5A1945Z Respiratory Ventilation, 24-96 Consecutive Hours (ICD-10-PCS; 2024-10-11)
PROC: 0BH17EZ Insertion of Endotracheal Airway into Trachea, Via Natural or Artificial Opening (ICD-10-PCS; 2024-10-11)
PROC: 04HY32Z Insertion of Monitoring Device into Lower Artery, Percutaneous Approach (ICD-10-PCS; 2024-10-11)
PROC: 4A133B1 Monitoring of Arterial Pressure, Peripheral, Percutaneous Approach (ICD-10-PCS; 2024-10-11)
PROC: 4A133J1 Monitoring of Arterial Pulse, Peripheral, Percutaneous Approach (ICD-10-PCS; 2024-10-11)
PROC: 02HV33Z Insertion of Infusion Device into Superior Vena Cava, Percutaneous Approach (ICD-10-PCS; 2024-10-11)
PROC: 4A133R1 Monitoring of Arterial Saturation, Peripheral, Percutaneous Approach (ICD-10-PCS; 2024-10-11)
PROC: 30233J1 Transfusion of Nonautologous Serum Albumin into Peripheral Vein, Percutaneous Approach (ICD-10-PCS; 2024-10-11)
DX: A41.89 Other specified sepsis (principal); J10.00 Influenza due to other identified influenza virus with unspecified type of pneumonia; J96.01 Acute respiratory failure with hypoxia; N17.0 Acute kidney failure with tubular necrosis; R65.21 Severe sepsis with septic shock; F17.290 Nicotine dependence, other tobacco product, uncomplicated; F10.20 Alcohol dependence, uncomplicated; A41.02 Sepsis due to Methicillin resistant Staphylococcus aureus; D70.9 Neutropenia, unspecified; R50.81 Fever presenting with conditions classified elsewhere; Z88.0 Allergy status to penicillin; Z79.2 Long term (current) use of antibiotics; Z79.899 Other long term (current) drug therapy; F41.9 Anxiety disorder, unspecified; Z78.1 Physical restraint status; Z98.890 Other specified postprocedural states
CPT/HCPCS: 31500; 36556; 36620; 71045; 71260; 80048; 80053; 80069; 80202; 82330; 82565; 82803; 82947; 83605; 83690; 83735; 83880; 84100; 84145; 84484; 85025; 85027; 85610; 87070; 87077; 87147; 87186; 87205; 87428-QW; 93005; 93010; 93306; 94002; 94003; 94640; 94664; 96361-59; 96365-59; 96367-59; 96375-59; 99285-25; A9270; C1751; J0171; J0612; J0696; J1171; J1650; J1720; J1885; J1940; J2060; J2250; J2371; J2470; J2543; J2704; J3010; J3370; J3411; J7030; J7040; J7050; J7060; J7070; J7120; P9046; P9047; Q5125; Q9967